=== PATIENT | male | born 1950 | race Caucasian/White ===

== ENCOUNTER → 2016-06-28 | Day surgery (SDC) | payer OTHER ==
[2016-06-17 12:03] VITALS: BMI 29.0
[~2016-06-28] VITALS: Ht 170.2 cm; Wt 84.1 kg
[~2016-06-28] MED LIST: ATOR-22 PO; DICL-201 PO; IBUP1TAB55 PO; LIDOCAINE HCL 2% 2 ML VIAL (20MG/ML) ONE; LISI-787 PO; MIDAZOLAM HCL 1 MG/ML 2ML VIAL ONE; MULT-506 PO; ONDANSETRON INJ 2 MG/ML 2 ML VIAL ONE; PROPOFOL IV EMULSION 10 MG/ML 20 ML VIAL IV ONE; SODIUM CHLORIDE 0.9% 500ML 500 ML IV ONE; VENL75CA PO
[2016-06-28 10:39] VITALS: Ht 170.2 cm; Wt 84.1 kg
--- NOTE | 2016-06-28 11:07 | Endo History and Physical ---
History & Physical Date of Service: Jun 28, 2016. Chief Complaint: Hx polyps Referring Physician: Dr. Aramis Dudley History of Present Illness 66 yo CM who presents for colonoscopy secondary to history of colon polyps. Past Surgical History Hx Cardiac Surgery: No Hx Internal Defibrillator: No Hx Pacemaker: No Hx Abdominal Surgery: Yes (INGUINAL HERNIA REPAIR) Hx of Implantable Prosthesis: No Hx Post-Op Nausea and Vomiting: No Hx Cancer Surgery: No Hx Thoracic Surgery: No Hx Orthopedic: No Hx Urinary Tract Surgery: No Family History None Social History Smoking Status: Former Smoker Hx Substance Use: No Hx Alcohol Use: Yes (2 DRINKS DAILY) Allergies Coded Allergies: Penicillins (Verified Allergy, Mild, MILD ALLERGY A CHILD, 06/17/16) Current Medications Reported Home Medications Medications Dose Route/Sig Max Daily Dose Days Date Category Dose Instructions Effexor Xr (Venlafaxine Hcl) 75 Mg Cap 1 Cap PO QPM 30 06/17/16 Reported Multivitamin (Multivitamins) Tab 1 Tab PO QAM 06/17/16 Reported Zestoretic 20MG/12.5MG (HCTZ/Lisinopril) Tab 1 Tab PO QAM 06/17/16 Reported Voltaren (Diclofenac Sodium) 75 Mg Tabcr 75 Mg PO BID 06/17/16 Reported WITH FOOD Vital Signs Weight (Kilograms): 84.09 Height (Feet): 5 Height (Inches): 7 Date Time Temp Pulse Resp B/P Pulse Ox O2 Delivery O2 Flow Rate FiO2 06/28/16 10:44 36.8 68 20 149/92 96 Room Air Physical Exam General Appearance: WD/WN, no apparent distress Respiratory/Chest: Auscultation: breath sounds normal Cardiovascular: Heart Auscultation: RRR Abdomen: Bowel Sounds: normal Inspection & Palpation: soft, non-distended, no tenderness, guarding & rebound Assessment and Plan Assessment: 66 yo CM who presents for colonoscopy secondary to history of colon polyps. Plan: Proceed with colonoscopy.
--- NOTE | 2016-06-28 11:50 | Discharge Instructions ---
Endoscopy Patient Instructions Date / Procedure(s) Performed Jun 28, 2016. Colonoscopy Allergy Information Coded Allergies: Penicillins (Verified Allergy, Mild, MILD ALLERGY A CHILD, 06/17/16) Discharge Date / Findings Jun 28, 2016. Colon polyp Diverticulosis Internal hemorrhoids Medication Instructions OK to resume all medications today as prescribed. Reported Home Medications Medications Dose Route/Sig Max Daily Dose Days Date Category Dose Instructions Effexor Xr (Venlafaxine Hcl) 75 Mg Cap 1 Cap PO QPM 30 06/17/16 Reported Multivitamin (Multivitamins) Tab 1 Tab PO QAM 06/17/16 Reported Zestoretic 20MG/12.5MG (HCTZ/Lisinopril) Tab 1 Tab PO QAM 06/17/16 Reported Voltaren (Diclofenac Sodium) 75 Mg Tabcr 75 Mg PO BID 06/17/16 Reported WITH FOOD Provider Instructions Activity Restrictions - No exercising or heavy lifting for 24 hours. - Do not drink alcohol the day of the procedure. - Do not drive a car or operate machinery until the day after the procedure. - Do not make any important decisions or sign important papers in 24 hours after the procedure. Following Day: - Return to full activity which may include returning to work/school. Diet Start your diet with liquids and light foods (jello, soup, juice, toast). Then eat your usual diet if not nauseated. Treatment For Common After Affects For mild abdominal pain, bloating, or excessive gas: - Rest - Eat lightly - Lie on right side Follow-Up Information Follow-up with Dr. Aramis Dudley as scheduled Anesthesia Information What You Should Know You have had a procedure that required some medicine to reduce anxiety and discomfort. This treatment is called moderate sedation. After receiving the treatment, you may be sleepy, but you will be able to breathe on your own. The effects of the treatment may last for several hours. Follow these instructions along with Activity/Diet recommendations noted above: * Do NOT do anything where dizziness or clumsiness would be dangerous. * Rest quietly at home today, then you can be up and about tomorrow. * Have a responsible person stay with you the rest of today. * You may have had an I.V. today. If so, you may take the dressing off later today. Recommendations Call your doctor if: * Trouble breathing * Continuous vomiting for more than 24 hours * Temperature above 101 degrees * Severe abdominal pain or bloating * Pain not relieved by pain medicine ordered * There is increased drainage or redness from any incision * A large amount of rectal bleeding greater than 2-3 tablespoons. (If you had a polyp/s removed or have hemorrhoids, a small amount of blood - from the rectum is to be expected.) * You have any unanswered questions or concerns. IN THE EVENT OF A SERIOUS EMERGENCY, GO TO THE NEAREST EMERGENCY ROOM Your discharge instructions were prepared by provider Arvind Amador. Patient Instructions Signature Page Jorge Jefferson Patient (or Guardian) Signature/Date: I have read and understand the instructions given to me by my caregivers. Caregiver/RN/Doctor Signature/Date: The above-named patient and/or guardian has received patient instructions on this date. + Original Patient Signature Page (only) stays with chart. Please make copy for patient.
--- NOTE | 2016-06-28 11:52 | GI REPORT ---
Procedure Date: 06/28/2016 11:22 AM Procedure: Colonoscopy Indications: High risk colon cancer surveillance: Personal history of colonic polyps Medicines: Monitored Anesthesia Care Complications: No immediate complications. Estimated Blood Loss: Estimated blood loss: none. Procedure: Pre-Anesthesia Assessment: - Prior to the procedure, a History and Physical was performed, and patient medications and allergies were reviewed. The patient's tolerance of previous anesthesia was also reviewed. The risks and benefits of the procedure and the sedation options and risks were discussed with the patient. All questions were answered, and informed consent was obtained. Prior Anticoagulants: The patient has taken no previous anticoagulant or antiplatelet agents. ASA Grade Assessment: II - A patient with mild systemic disease. After reviewing the risks and benefits, the patient was deemed in satisfactory condition to undergo the procedure. After I obtained informed consent, the scope was passed under direct vision. Throughout the procedure, the patient's blood pressure, pulse, and oxygen saturations were monitored continuously. The Scope was introduced through the anus and advanced to the terminal ileum. The colonoscopy was performed without difficulty. The patient tolerated the procedure well. The quality of the bowel preparation was good. The ileocecal valve, appendiceal orifice, and rectum were photographed. Findings: A 3 mm polyp was found in the cecum. The polyp was sessile. The polyp was removed with a cold biopsy forceps. Resection and retrieval were complete. A few small-mouthed diverticula were found in the sigmoid colon. Non-bleeding internal hemorrhoids were found during retroflexion. The hemorrhoids were small. Impression: - One 3 mm polyp in the cecum, removed with a cold biopsy forceps. Resected and retrieved. - Diverticulosis in the sigmoid colon. - Non-bleeding internal hemorrhoids. Recommendation: - Resume previous diet. - Continue present medications. - Repeat colonoscopy for surveillance based on pathology results. - Return to primary care physician as previously scheduled. Arvind Amador DO 06/28/2016 11:52:01 AM This report has been signed electronically. Note Initiated On: 06/28/2016 11:22 AM
[2016-06-28 12:20] VITALS: BP 135/77; PULSE 54; O2SAT 98
--- NOTE | 2016-06-28 15:05 | Anesthesiology Progress Note ---
Anesthesia Post Op Note Date & Time Jun 28, 2016 at 15:05 Vital Signs Pain Intensity: 0 Vital Signs Past 12 Hours Date Time Temp Pulse Resp B/P Pulse Ox O2 Delivery O2 Flow Rate FiO2 06/28/16 12:20 54 16 135/77 98 Room Air 06/28/16 12:05 56 16 138/84 98 Room Air 06/28/16 11:50 83 16 117/77 94 Room Air 06/28/16 10:44 36.8 68 20 149/92 96 Room Air Notes Mental Status: alert / awake / arousable, participated in evaluation Pt Amnestic to Procedure: Yes Nausea / Vomiting: adequately controlled Pain: adequately controlled Airway Patency, RR, SpO2: stable & adequate BP & HR: stable & adequate Hydration State: stable & adequate Anesthetic Complications: no major complications apparent
== END | disposition home or self-care (01) ==
LOC: C.GI 10:24
PROVIDERS: ATTEND Internal Medicine
DX: Z12.11 Encounter for screening for malignant neoplasm of colon (principal); D12.0 Benign neoplasm of cecum; Z86.010 Personal history of colon polyps; Z87.891 Personal history of nicotine dependence; K57.30 Diverticulosis of large intestine without perforation or abscess without bleeding; K64.8 Other hemorrhoids

== ENCOUNTER → 2016-12-27 | Outpatient (CLI) | payer OTHER ==
[~2016-12-27] MED LIST changes: -LIDOCAINE HCL 2% 2 ML VIAL (20MG/ML) ONE; -MIDAZOLAM HCL 1 MG/ML 2ML VIAL ONE; -ONDANSETRON INJ 2 MG/ML 2 ML VIAL ONE; -PROPOFOL IV EMULSION 10 MG/ML 20 ML VIAL IV ONE; -SODIUM CHLORIDE 0.9% 500ML 500 ML IV ONE
[2016-12-27 11:36] LABS: ALT/SGPT 43 U/L (12-78); AST/SGOT 32 U/L (15-37); BLOOD UREA NITROGEN 43 mg/dl (7-18); BUN/CREATININE RATIO 39.3 (10-20); CALCIUM 8.7 mg/dl (8.5-10.1); CARBON DIOXIDE 24 mmol/L (21-32); CHLORIDE 101 mmol/L (98-107); GLUCOSE 109 mg/dl (70-99); POTASSIUM 3.8 mmol/L (3.5-5.1); SODIUM 135 mmol/L (136-145)
[2016-12-27 11:41] LABS: ALB/GLOB RATIO 1.4 (0.9-2); ALKALINE PHOSPHATASE 82 U/L (45-117); CHOLESTEROL 241 mg/dl (0-200); CHOLESTEROL/HDL RATIO 5.4; HDL CHOLESTEROL 45 mg/dl; TRIGLYCERIDES 480 mg/dl (0-150)
--- NOTE | 2017-01-03 13:01 | CODING QUERY MEDICAL NECESSITY ---
SUPPORTING DIAGNOSIS NEEDED Dr. Dudley, A supporting diagnosis is required for the test/procedure performed on this patient in order for us to be reimbursed by the patient's insurance. Please provide a supporting diagnosis for the following test/procedure listed below next to the test name along with your signature. *If there is no additional diagnosis for this patient that would support the following test/procedure please document that below next to the test/procedure. Test(s)/Procedure(s) that require a supporting diagnosis: * [id number] PSA DIAGNOSIS: DATE OF SERVICE: 12/27/16 Provider Signature: Date: Thank you Kenny Malloy [facility] Information Management Once completed, please kindly fax back to [phone] For questions please call [phone]
== END | disposition home or self-care (01) ==
LOC: C.LABBC 07:51
PROVIDERS: ATTEND Internal Medicine Geriatric Medicine
DX: Z00.00 Encounter for general adult medical examination without abnormal findings (principal); I10 Essential (primary) hypertension; E78.5 Hyperlipidemia, unspecified; R73.9 Hyperglycemia, unspecified; Z12.5 Encounter for screening for malignant neoplasm of prostate

== ENCOUNTER → 2017-09-12 | Outpatient (CLI) | payer OTHER ==
[2017-09-12 14:56] LABS: ALT/SGPT 34 U/L (12-78); AST/SGOT 19 U/L (15-37); BLOOD UREA NITROGEN 30 mg/dl (7-18); CALCIUM 8.8 mg/dl (8.5-10.1); CARBON DIOXIDE 25 mmol/L (21-32); CREATININE 0.89 mg/dl (0.60-1.40); GLUCOSE 109 mg/dl (70-99); SODIUM 135 mmol/L (136-145); TOTAL PROTEIN 7.2 gm/dl (6.4-8.2)
[2017-09-12 15:09] LABS: ALKALINE PHOSPHATASE 71 U/L (45-117); CHOLESTEROL 247 mg/dl (0-200)
== END | disposition home or self-care (01) ==
LOC: C.LABBC 11:29
PROVIDERS: ATTEND Internal Medicine Geriatric Medicine
DX: I10 Essential (primary) hypertension (principal); E78.5 Hyperlipidemia, unspecified; M19.90 Unspecified osteoarthritis, unspecified site; F32.9 Major depressive disorder, single episode, unspecified; R73.9 Hyperglycemia, unspecified

== ENCOUNTER 2019-04-20 06:32 | Inpatient (IN) ==
[2019-03-27 13:17] LABS: Basophils # (auto) 0.02 K/uL (0-0.2); Basophils % (auto) 0.3 %; Eosinophils # (auto) 0.05 K/uL (0-0.5); Eosinophils % (auto) 0.8 %; Hematocrit (blood only) 40.9 % (42-52); Hemoglobin 14.3 g/dL (14.0-18.0); Immature Granulocytes # (auto) 0.02 K/uL (0.00-0.02); Immature Granulocytes % (auto) 0.3 %; Lymphocytes # (auto) 1.82 K/uL (1.2-3.4); Lymphocytes % (auto) 29.1 %; Mean Corpuscular Volume 91.5 fL (80-100); Mean Platelet Volume 10.8 fL (7.4-10.4); Monocytes # (auto) 0.68 K/uL (0.11-0.59); Monocytes % (auto) 10.9 %; Neutrophils # (auto) 3.66 K/uL (1.4-6.5); Neutrophils % (auto) 58.6 %; Platelet Count 238 K/uL (130-400); RDW Coefficient of Variation 13.7 % (11.5-14.5); RDW Standard Deviation 45.7 fL (36.4-46.3); Red Blood Count 4.47 M/uL (4.7-6.1); White Blood Count 6.25 K/uL (4.8-10.8)
[2019-03-27 13:29] LABS: Partial Thromboplastin Time 26.5 Seconds (21.0-31.0); Prothrombin Time 10.3 Seconds (9.0-12.0)
[2019-03-27 13:31] LABS: BUN Creatinine Ratio 38.3 (10-20); Blood Urea Nitrogen 30 mg/dl (7-18); C Reactive Protein < 0.29 mg/dl (0-0.29); Calcium 8.7 mg/dl (8.5-10.1); Carbon Dioxide 26 mmol/L (21-32); Chloride 102 mmol/L (98-107); Est GFR (African American) 106.9; Est GFR (Non-African American) 92.3; Glucose 119 mg/dl (70-99); Potassium 4.1 mmol/L (3.5-5.1); Sodium 133 mmol/L (136-145)
--- NOTE | 2019-04-02 13:14 | Anesthesiology Consultation ---
Date of Service April 02, 2019 Assessment & Plan (1) Encounter for pre-operative examination: Chart Review Chart Review: Acceptable Risk for Surgery and Patient NOT seen in Pre Admission Testing History Surgery Operation Date: 04/20/19 12:30 Proposed Procedures p Left Total Knee Replacement - Placido Damon MD Height/Weight Height: 5 ft 7 in Weight: 80.739 kg Allergies Allergy/AdvReac Type Severity Reaction Status Date / Time Penicillins Allergy Mild MILD Verified 02/22/19 07:22 ALLERGY A CHILD Medications Home Medications Medication Instructions Recorded Confirmed Last Taken atorvastatin 20 mg tablet 20 mg PO QPM 02/21/18 02/22/19 11/26/18 20:00 multivitamin tablet 1 tab PO QAM 02/21/18 02/22/19 11/27/18 08:00 lisinopril 10 mg tablet 10 mg PO BID tab 09/18/18 02/22/19 11/27/18 08:00 Samuel Long Lasting 2 spray INTRANASAL Q12H PRN 11/08/18 02/22/19 11/28/18 03:00 diclofenac sodium 75 mg 75 mg PO BID #180 tab 01/10/19 02/22/19 Unknown tablet,delayed release acetaminophen 1,000 mg PO QAM PRN 02/22/19 02/22/19 Unknown venlafaxine [Effexor XR] 75 mg PO QPM 02/22/19 02/22/19 Unknown Past Medical History Medical History Depressive disorder Osteoarthritis Hypertension Hyperlipidemia Past Family History Family History Grandfather Family history of diabetes mellitus Past Surgical History Surgical History History of herniorrhaphy left inguinal H/O eye surgery A CHILD History of colonoscopy X 3-4 History of total hip arthroplasty left Social History Smoking Status: Former smoker tobacco type: cigarettes Do You Dip or Chew Tobacco: No Smoking End Date: quit 30 years ago Hx Alcohol Use: Yes Alcohol type: hard liquor alcohol intake frequency: 0-2 drinks per day Hx Substance Use: No substance use type: does not use Testing Laboratory Results 03/27/19 10:41 03/27/19 10:41 PT 10.3 Seconds (9.0-12.0) 03/27/19 10:41 INR 1.0 (0.9-1.1) 03/27/19 10:41 APTT 26.5 Seconds (21.0-31.0) 03/27/19 10:41 Blood Type O Positive 03/27/19 10:42 Antibody Screen NEGATIVE 03/27/19 10:42 Electrocardiogram Date: 11/13/18 Findings: + SB @ (58) Chest X-Ray Date: 11/13/18 No prior studies are available for comparison at the time of dictation. The cardiomediastinal silhouette is unremarkable. The lungs and pleural spaces are clear. There is no pneumothorax. The bony thorax appears intact. Degenerative change is seen throughout the thoracic spine. No active disease in the chest.
--- NOTE | 2019-04-14 23:39 | History and Physical Report ---
DATE OF ADMISSION: 04/20/2019 CHIEF COMPLAINT: Bilateral knee pain and discomfort, left side greater than right. HISTORY OF PRESENT ILLNESS: The patient is a 69-year-old gentleman who presents for treatment of his knees. He has got a long history of bilateral knee pain and discomfort that has gradually just gotten worse over the years. He does have a history of left hip arthritis and had his left hip replaced about 4-1/2 months ago. He has done well from this side. He continues to be limited by his knee pain. The left side is a bit worse than the right. He has been through extensive conservative treatment which has not helped much lately. He would like to proceed with left knee replacement. PAST MEDICAL HISTORY: Significant for, 1. Spinal stenosis. 2. Hip DJD. 3. Bilateral knee DJD. PAST SURGICAL HISTORY: Include: 1. Herniorrhaphy. 2. Left hip replacement on 11/28/2018. ALLERGIES: PENICILLIN, REACTION IS UNKNOWN. CURRENT MEDICINES: Include: 1. Lisinopril. 2. Unspecified statin medicine for cholesterol. 3. Various anti-inflammatories. 4. Effexor. SOCIAL HISTORY: A 69-year-old male. 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 He is . Ten drinks per week. Does not smoke. FAMILY HISTORY: Noncontributory. REVIEW OF SYSTEMS: Negative for diabetes, neurologic problems, vascular problems, or bleeding disorders. No chest pain or shortness of breath. No history of DVT or PE. PHYSICAL EXAMINATION: GENERAL: Shows a pleasant, middle-aged male. He looks to be in good health. HEENT: Benign. NECK: Supple, no lymphadenopathy. LUNGS: Clear to auscultation. HEART: Regular rate and rhythm. ABDOMEN: Soft, nontender, nondistended. EXTREMITIES: Grossly neurovascularly intact except as follows: Examination of both knees reveals patient walks with a varus alignment to his knee. Examination of left knee reveals a varus alignment with a varus thrust with weightbearing. He has got bony hypertrophy medially. Range of motion about 5-120. No instability. No pain with hip motion. Examination of the left hip on this side reveals the hip incision to be healed nicely. He has got no pain with hip motion. He is neurologically intact. Examination of the right knee reveals varus alignment. He has bony hypertrophy medially. Small knee effusion. Range of motion 5-125. No instability. X-RAYS: X-ray of the left knee revealed advanced left knee DJD. He has got advanced medial compartment DJD. He has got complete loss of his medial joint space. He has subchondral sclerosis. He has got osteophytes off the medial as well as the posterior aspect of the femur. 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 He has failed conservative treatment and would like to have his left knee replaced. PLAN: We are going to take him to the operating room and do a left total knee replacement. The risks and benefits of this procedure were explained to the patient and include, but not limited to, DVT, PE, , infection, neurological injury, vascular injury, bleeding problem, pain, limited range of motion, stiffness, failure to relieve symptoms, incomplete relief of symptoms, need for further surgery in the future, fracture, leg length inequality, nerve palsy, etc. The patient understands and desires to proceed. Last time we tried to manage his pain with hip surgery with tramadol, but did not do too well. We will use Toradol postoperatively along with Tylenol and some oxycodone. As far as discharge plans, he is planning to be discharged to home using the [facility].
[~2019-04-20 06:32] MED LIST changes: +ACETAMINOPHEN 500 MG TAB PO SCH; -ATOR-22 PO; +BUPIVACAINE 0.5 % 5 MG/1 ML PF 10ML VIAL ONE; +BUPIVACAINE LIPOSOME/PF 266 MG, BUPIVACAINE/EPINEPHRINE 50 ML, SODIUM CHLORIDE 0.9% 30 ... INFIL SCH; +CEFAZOLIN 2000MG 2,000 MG/15 ML SYR IV SCH; -DICL-201 PO; +EPINEPHrine INJ 1 MG/ML AMP ONE; +FAMOTIDINE 20 MG TAB PO SCH; +GABAPENTIN 300 MG CAP PO SCH; -IBUP1TAB55 PO; -LISI-787 PO; +LR 500ML BOLUS, THEN 15ML/HR IV SCH; +LR 60ML/HR IV SCH; +METOCLOPRAMIDE HCL 10 MG TABLET PO SCH; -MULT-506 PO; +ROPIVACAINE 0.5% 5 MG/ML 30 ML VIAL ONE; +SCOPOLAMINE 1.5 MG TDSY TD SCH; +TRANEXAMIC ACID 1,000 MG **IV Intra-op IV SCH; -VENL75CA PO
--- NOTE | 2019-04-20 06:53 | History & Physical Bridge Note ---
Date of Service April 20, 2019 History & Physical Bridge Note I have examined the patient, reviewed the History & Physical and in the interval since the performance of the History & Physical I have noted the following changes of clinical significance: no changes noted
[2019-04-20] MEDS ORDERED: fentaNYL citrate 100 MCG/2 ML VIAL ONE (07:42)
[2019-04-20] MEDS ORDERED: MIDAZOLAM HCL 1 MG/ML 2ML VIAL ONE (07:42)
[2019-04-20] MEDS ORDERED: BACITRACIN INJ 50,000 UNIT VIAL ONE (08:32)
[2019-04-20] MEDS ORDERED: SODIUM CHLORIDE 0.9% PF 50 ML VIAL ONE (08:32)
[2019-04-20] MEDS ORDERED: BUPIVACAINE/EPINEPHRINE 0.25% 1:200,000 30 ML VIAL ONE (08:32)
[2019-04-20] MEDS ORDERED: BUPIVACAINE LIPOSOME 1.3% 266 MG/20 ML VIAL ONE (08:32)
[2019-04-20] MEDS ORDERED: ePHEDrine sulfate 50 MG/ML AMP IV PRN (08:50)
[2019-04-20] MEDS ORDERED: ATROPINE SULFATE 0.1 MG/ML 10ML SYR IV PRN (08:50)
[2019-04-20] MEDS ORDERED: PROPOFOL IV EMULSION 10 MG/ML 20 ML VIAL IV ONE (09:34)
--- NOTE | 2019-04-20 10:36 | Post Operative Brief Note ---
PG Immediate Post Op with CF Date of Surgery April 20, 2019 Pre & Post Diagnosis Operation Date: 04/20/19 08:50 Pre-Op Diagnosis: LEFT KNEE DEGENERATIVE JOINT DISEASE Post-Op Diagnosis: LEFT KNEE DEGENERATIVE JOINT DISEASE I identified the patient and participated in the time-out.: Yes Procedure Operation Date: 04/20/19 08:50 Actual Procedures p Left Total Knee Arthroplasty(Left) - Placido Damon MD Surgeon Placido Damon MD Director Product Management Sally, PAC Estimated Blood Loss 50 Findings Consistent with Post-Op Diagnosis Fluids 1500 cc Specimens Specimen Description: Permanent Solution: A.) Left Knee Bone and Tissue Drains Trujillo Catheter (16 bulgarian 10ml balloon patent,clean,dry,intact) Anesthesia Type Spinal MAC Complications none Disposition Accompanied Patient To Recovery: No Disposition: Recovery Room
--- NOTE | 2019-04-20 10:55 | Operative Report ---
Post Operative Report Pre & Post Diagnosis Operation Date: 04/20/19 08:50 Pre-Op Diagnosis: LEFT KNEE DEGENERATIVE JOINT DISEASE Post-Op Diagnosis: LEFT KNEE DEGENERATIVE JOINT DISEASE I identified the patient and participated in the time-out.: Yes Procedure Operation Date: 04/20/19 08:50 Actual Procedures p Left Total Knee Arthroplasty(Left) - Placido Damon MD Surgeon Placido Damon MD Graduate Student Instructor Sally, PAC Estimated Blood Loss 50 Findings Consistent with Post-Op Diagnosis Operative findings revealed advanced left knee DJD in the medial and patellofemoral compartments with grade 4 changes in both areas and extensive with eburnation of the medial femoral condyle, trochlea, medial tibial plateau. He had a fixed varus deformity to his knee. Osteophytes in the medial compartment. Moderate knee joint effusion. Fluids 1500 cc Specimens Left Knee sent for pathology. 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 He is been through extensive conservative treatment the past. This become less successful. He underwent a left hip replacement about 6 months ago is done extremely well from that. He elected proceed with a left total knee replacement. He has had advanced DJD in both knees which is failed conservative treatment over many years of treatment. Description of Procedure Operative implants consisted of: 1. Biomet Vanguard size 70 left posterior bifemoral component. 2. Biomet size 75 tibial tray. 3. Biomet 10 mm posterior stabilized polyethylene insert. 4. 31 x 8 all poly-patella. Patient was taken to the operating room identified and placed on the operating table supine position with all contact there is probably padded. IV en bloc from the right by the anesthesia team. A spinal anesthetic and abductor canal block had been provided in the holding area. A Trujillo catheter was placed in sterile fashion. A left eye turn was then placed in the left lower extremity was then prepped and draped in usual sterile fashion. Left leg was elevated and exsanguinated using an Esmarch interspace at 300 mmHg. An anterior approach to the left knee was then performed to a longitudinal incision centered over the patella. Sharp lysis got through subcutaneous tissue down below the extensor mechanism. A medial parapatellar arthrotomy incision was made. Some subperiosteal dissection was carried out medially. The fat pad was resected from beneath patella tendon. Lateral patellofemoral ligament was released. Patella was everted knee was flexed. The osteophytes taken of the distal femur. The ACL and PCL were then released from the distal femur and the tibia subluxated anteriorly. The external tibial alignment jig was then placed in the interface of the tibia and adjusted 16 mm medially. Proximal tibial cut was made to remove about a millimeter bone from the most efficient aspect of the posterior medial tibial plateau. Some osteophytes taken off medial and posterior medially. The tibia was sized to a size 75. Attention down the femur. New per the disc femur and the sharp drill bit intramedullary canal was suction. A left 6 degree valgus cutting guide was placed. The distal femoral cutting block was pinned in place. Distal femoral cut was made to take an additional 3 mm of bone off the distal femur. Femur was then sized to a size 70. We downsized this just slightly. The AP cutting block was pinned parallel to the epicondylar axis which was 6 degrees of external rotation. The anterior cut, anterior chamfer, posterior cut, posterior chamfer cuts were made. The box cutting guide was placed and just slightly lateral and the box cut was made. The knee was flexed. The remnants of the medial lateral menisci were excised. The osteophytes were taken off the posterior aspect of the femur. A trial femoral component was placed. The tibial tray was pinned in maximum external rotation and the drill and stem punch were used to create defect in the proximal tip for the tibial tray. The knee was then trialed the 10 mm insert fit most appropriately. Attention down the patella. The patella was cleaned of all soft tissues. The patella thickness measured 25 mm in thickness and was cut down to a 15. Was sized to a size 31 patella. Locals were drilled for 31 patella. Lateral osteophyte was removed. Patella button was placed. Knee was taken through range of motion patella tracked nicely with no thumbs test. Attention then drawn to place the permanent components. Nephrotic all trial components removed. A bone plug was placed in the disc femur limit blood loss. A double batch Palacos G cement was mixed. A Biomet Vanguard size 70 left posterior bifemoral component, size 75 tibial tray, 10 mm posterior bite polyethylene insert, and a 31 x 8 all poly-patella then cement in place. Knees brought down to full extension until cement hardened. Final cement check was then performed. The pericapsular tissues were injected with total of 100 cc of combination of 20 cc of Exparel, 30 cc normal saline, 50 cc of quarter percent Marcaine with epinephrine. Patient did receive 1 g of tranexamic acid. The tourniquet was then let down for final tourniquet time of 60 minutes. Hemostasis was assured with electrocautery. The wound was once again irrigated. Extensor macros then closed with combination 1 PDS suture #1 Vicryl suture in [id number] fashion. Extensor mechanism checked and found to be intact the subtenons tissue then closed with 2 Dexon suture in a buried fashion skin was closed skin danyel. Leg was then cleaned dried and sterile dressing was Xeroform for 4 sterile cast padding Bassam bandage were applied. Patient then transferred to the recovery room in stable condition. The patient tolerated the procedure well no complications. All needle sponge counts are correct at the end the operation. I attest to the content of the Intraoperative Record and any orders documented therein. Any exceptions are noted below.
--- NOTE | 2019-04-20 11:03 | XRay Report ---
XR knee LT 1 or 2V routine CLINICAL HISTORY: Postoperative evaluation. COMPARISON: Knee radiographs March 05, 2019. FINDINGS: Alignment of the total left knee arthroplasty is anatomic. Skin danyel are present. There is no fracture or unexpected radiopaque foreign body. IMPRESSION: Expected findings following total left knee arthroplasty. Electronically signed by: Toby Johnson M.D. 04/20/2019 11:02 AM
--- NOTE | 2019-04-20 11:28 | Anesthesiology Progress Note ---
Date of Service April 20, 2019 Anesthesia Post Procedure Vital Signs Vital Signs: Temp Pulse Pulse Resp BP BP Pulse Ox 04/20/19 11:15 54 L 14 100/63 94 04/20/19 11:05 59 L 14 101/64 95 04/20/19 10:55 69 16 107/62 98 04/20/19 10:45 69 16 102/63 98 04/20/19 10:39 36.4 C L 72 16 103/65 98 04/20/19 07:09 37.0 C 68 18 109/81 92 Transfer of Care Handoff Completed per policy Notes Mental Status: alert / awake / arousable Patient Amnestic to Procedure: Yes Nausea / Vomiting: adequately controlled Pain: adequately controlled Airway Patency, RR, SpO2: stable & adequate BP & HR: stable & adequate Hydration State: stable & adequate Neuraxial Anesthesia: was administered and sensory block is resolving Anesthetic Complications: no major complications apparent
[2019-04-20] MEDS ORDERED: NALOXONE HCL 0.4 MG/1 ML VIAL/CARP IV PRN (11:53)
[2019-04-20] MEDS ORDERED: BISACODYL 10 MG SUPP PR PRN (11:53)
[2019-04-20] MEDS ORDERED: ONDANSETRON INJ 2 MG/ML 2 ML VIAL IV PRN (11:53)
[2019-04-20] MEDS ORDERED: METOCLOPRAMIDE HCL INJ 5 MG/ML 2 ML VIAL IV PRN (11:53)
[2019-04-20] MEDS ORDERED: TAMSULOSIN HCL 0.4 MG CAP PO PRN (11:53)
[2019-04-20] MEDS ORDERED: MAGNESIUM HYDROXIDE SUSP 30 ML UDC PO PRN (11:53)
[2019-04-20] MEDS: SODIUM CHLORIDE 0.9% 1000ML 1,000 ML IV SCH ×2 (12:02→21:00)
[2019-04-20] MEDS ORDERED: OXYMETAZOLINE 0.05% 30 ML BTL NAE PRN (12:16)
[2019-04-20] MEDS: KETOROLAC TROMETHAMINE 15 MG/ML VIAL IV SCH ×3 (12:20→23:53)
[2019-04-20] MEDS: ACETAMINOPHEN 500 MG TAB PO SCH ×2 (14:19→21:55)
[2019-04-20] MEDS: OXYCODONE HCL IR 5 MG TAB (IMMEDIATE RELEASE) PO PRN (15:26)
[2019-04-20] MEDS: CHECK SCOPOLAMINE PATCH PLACEMENT SCH (15:28)
[2019-04-20] MEDS: CEFAZOLIN 2000MG 2,000 MG/15 ML SYR IV SCH ×2 (15:28→23:52)
[2019-04-20] MEDS ORDERED: TRANEXAMIC ACID 1,000 MG in 0.9 % SODIUM CHLORIDE 100 ML IV SCH (16:37)
[2019-04-20] MEDS: ASCORBIC ACID 500 MG TAB PO SCH (16:46)
[2019-04-20] MEDS: FERROUS GLUCONATE 324 MG TAB PO SCH (16:46)
--- NOTE | 2019-04-20 19:37 | Progress Note ---
DATE: 04/20/2019 SUBJECTIVE: A 69-year-old gentleman postop from a left knee replacement. He is doing well. Just starting to get some pain. No chest pain or shortness of breath. Not feeling dizzy or lightheaded. OBJECTIVE: VITAL SIGNS: Temperature 36.5. Vital signs are stable. GENERAL: Reveals a pleasant, middle-aged male. He is sitting up in bed, looks comfortable. LUNGS: Clear to auscultation. HEART: Regular rate and rhythm. ABDOMEN: Soft, nontender, nondistended. EXTREMITIES: Grossly neurovascularly intact except as follows: Examination of the left leg reveals the leg to be well aligned. Dressing is clean, dry, and intact. He can dorsiflex and plantarflex his foot appropriately. He has got brisk refill. Good distal pulse. X-RAYS: X-rays of the left knee from recovery room were reviewed. It shows cemented posterior stabilized total knee arthroplasty. Components looked to be in good position. No signs of problems. ASSESSMENT: A 69-year-old gentleman postoperative from a left knee replacement, doing well. Pain is controlled. He is neurologically intact. PLAN: 1. DVT prophylaxis including thigh-high TEDs, SCDs, and aspirin twice a day. 2. PT/OT. Weight bear as tolerated. Left total knee protocol. 3. Pain control, doing well with current pain regimen. 4. IV antibiotics x24 hours. 5. Disposition: He is planning to be discharged home with some home health once adequately recovered and medically stable.
[2019-04-20] MEDS: HYDROmorphone INJ 0.5 MG/0.5 ML SYR IV PRN (20:18)
[2019-04-20] MEDS: SENNA 8.6 MG TAB PO SCH (20:20)
[2019-04-20] MEDS: VENLAFAXINE HCL XR 75 MG CAPXR PO SCH (20:20)
[2019-04-20] MEDS: DOCUSATE SODIUM 100 MG CAP PO SCH (20:20)
[2019-04-20] MEDS: ATORVASTATIN 20 MG TAB PO SCH (20:20)
[2019-04-20] MEDS: ASPIRIN 81 MG ECTAB PO SCH (20:21)
[2019-04-20] MEDS: TAPENTADOL HCL ER 50 MG TABCR PO SCH (21:00)
[2019-04-21] MEDS: OXYCODONE HCL IR 5 MG TAB (IMMEDIATE RELEASE) PO PRN ×4 (00:01→23:41)
[2019-04-21] MEDS: CHECK SCOPOLAMINE PATCH PLACEMENT SCH (00:01)
[2019-04-21] MEDS: KETOROLAC TROMETHAMINE 15 MG/ML VIAL IV SCH ×4 (05:25→23:41)
[2019-04-21] MEDS: ACETAMINOPHEN 500 MG TAB PO SCH ×3 (05:25→21:14)
[2019-04-21 05:50] LABS: Hematocrit (blood only) 31.5 % (42-52); Hemoglobin 10.8 g/dL (14.0-18.0); Mean Corpuscular Hgb Conc 34.3 g/dL (32-36); Mean Corpuscular Volume 93.5 fL (80-100); Mean Platelet Volume 10.4 fL (7.4-10.4); Platelet Count 150 K/uL (130-400); RDW Coefficient of Variation 13.6 % (11.5-14.5); RDW Standard Deviation 46.2 fL (36.4-46.3); Red Blood Count 3.37 M/uL (4.7-6.1); White Blood Count 11.23 K/uL (4.8-10.8)
[2019-04-21 06:27] LABS: BUN Creatinine Ratio 35.1 (10-20); Creatinine Clr Calc Pharmacy 91.8 ml/min; Est GFR (African American) 106.9; Est GFR (Non-African American) 92.3; Potassium 3.9 mmol/L (3.5-5.1)
[2019-04-21] MEDS: MULTIVITAMIN TAB PO SCH (08:34)
[2019-04-21] MEDS: FERROUS GLUCONATE 324 MG TAB PO SCH ×2 (08:35→17:59)
[2019-04-21] MEDS: ASPIRIN 81 MG ECTAB PO SCH ×2 (08:35→21:13)
[2019-04-21] MEDS: ASCORBIC ACID 500 MG TAB PO SCH ×2 (08:35→17:59)
[2019-04-21] MEDS: LISINOPRIL/HCTZ 20/12.5MG 1 TAB TAB PO SCH (08:35)
[2019-04-21] MEDS: DOCUSATE SODIUM 100 MG CAP PO SCH ×2 (08:35→21:13)
[2019-04-21] MEDS: TAPENTADOL HCL ER 50 MG TABCR PO SCH ×2 (08:38→21:14)
[2019-04-21] MEDS ORDERED: MULTIVITAMIN TAB PO SCH (09:00)
--- NOTE | 2019-04-21 09:07 | Progress Note ---
DATE: 04/21/2019 SUBJECTIVE: A 69-year-old gentleman postop day #1 from left knee replacement. He is doing well. Pain is controlled. No chest pain or shortness of breath. Not feeling dizzy or lightheaded. OBJECTIVE: VITAL SIGNS: Temperature 36.5. Vital signs stable. GENERAL: Reveals a pleasant, middle-aged male. He is sitting up in bed, looks reasonably comfortable. EXTREMITIES: Examination of the left leg reveals the dressing to be clean, dry and intact. Leg is well aligned. He can dorsiflex and plantarflex his foot appropriately. He is neurologically intact. LABORATORY DATA: Hemoglobin is 10.8. Hematocrit 31.5. Electrolytes are stable. ASSESSMENT: A 69-year-old gentleman postop day #1 from left knee replacement, doing pretty well. Pain is controlled. He is neurologically intact. PLAN: 1. DVT prophylaxis including thigh-high TEDs, SCDs, and aspirin twice a day. 2. PT/OT. Weight bear as tolerated. Left total knee protocol. 3. Pain control, doing pretty well with current pain regimen. 4. Disposition: Plan to discharge to home. He is going to have [facility] home health/therapy.
[2019-04-21] MEDS: HYDROmorphone INJ 0.5 MG/0.5 ML SYR IV PRN (13:40)
[2019-04-21] MEDS: ATORVASTATIN 20 MG TAB PO SCH (21:13)
[2019-04-21] MEDS: VENLAFAXINE HCL XR 75 MG CAPXR PO SCH (21:13)
[2019-04-21] MEDS: SENNA 8.6 MG TAB PO SCH (21:14)
[2019-04-22] MEDS: ACETAMINOPHEN 500 MG TAB PO SCH (05:57)
[2019-04-22] MEDS: KETOROLAC TROMETHAMINE 15 MG/ML VIAL IV SCH (05:57)
[2019-04-22] MEDS: OXYCODONE HCL IR 5 MG TAB (IMMEDIATE RELEASE) PO PRN (06:47)
[2019-04-22] MEDS: FERROUS GLUCONATE 324 MG TAB PO SCH (07:27)
[2019-04-22] MEDS: LISINOPRIL/HCTZ 20/12.5MG 1 TAB TAB PO SCH (07:27)
[2019-04-22] MEDS: MULTIVITAMIN TAB PO SCH (07:27)
[2019-04-22] MEDS: DOCUSATE SODIUM 100 MG CAP PO SCH (07:27)
[2019-04-22] MEDS: ASPIRIN 81 MG ECTAB PO SCH (07:28)
[2019-04-22] MEDS: ASCORBIC ACID 500 MG TAB PO SCH (07:28)
[2019-04-22] MEDS: TAPENTADOL HCL ER 50 MG TABCR PO SCH (07:31)
--- NOTE | 2019-04-22 09:09 | Progress Note ---
DATE: 04/22/2019 SUBJECTIVE: A 69-year-old gentleman postop day 2 from a left knee replacement. He is doing pretty well. Pain has been controlled. Therapy is going well. No chest pain or shortness of breath. Not feeling dizzy or lightheaded. OBJECTIVE: VITAL SIGNS: Temperature 36.5. Vital signs stable. GENERAL: Shows a pleasant, middle-aged male. He was walking out of the bathroom with a walker quite well when I visited with him this morning. EXTREMITIES: Examination of the left leg reveals the leg to be well aligned. Dressing is clean, dry and intact. Calf is soft and supple. He is neurologically intact. ASSESSMENT: A 69-year-old gentleman postop day 2 from a left knee replacement, doing pretty well. Pain is controlled. PLAN: 1. DVT prophylaxis including thigh-high TEDs, SCDs and aspirin twice a day. 2. PT/OT. Weight bear as tolerated. Left total knee protocol. 3. Pain control, doing pretty well with current pain regimen. 4. Disposition. Plan to discharge to home with some home health later today.
--- NOTE | 2019-04-23 16:17 | Discharge Summary ---
ADMITTING PHYSICIAN AND SURGEON: Dr. Placido Damon. ADMITTING DIAGNOSIS: Left knee degenerative joint disease. SURGERY PERFORMED: Left total knee arthroplasty. SECONDARY DIAGNOSES: Spinal stenosis, hip degenerative joint disease, bilateral knee degenerative joint disease. CONSULTS: None obtained. HISTORY AND PHYSICAL EXAMINATION: Well documented in the patient's chart. HOSPITAL COURSE: The patient was admitted on 04/20/2019 underwent total knee arthroplasty, tolerated the procedure well. There were no complications. He was transferred to the PACU postoperatively and later to the orthopedic floor for further care. He was given Ancef for antibiotic prophylaxis, SANDY stockings, SCDs and aspirin for DVT prophylaxis. Hemoglobin, hematocrit and vital signs were monitored during his hospital stay and remained stable, did not require any blood transfusions. There were no complications. By postoperative day 2, he was tolerating a regular diet, pain was controlled with oral pain medicine. He was participating in physical therapy. On postop day 2, he was discharged home, set up with home health services, given printed discharge instructions as well as new prescriptions for extra strength Tylenol, aspirin and oxycodone. Continue his home medications, continue physical therapy, weightbearing as tolerated, SANDY stockings. Follow up approximately 2 weeks postop or sooner if there are any problems or concerns.
== END 2019-04-22 10:49 | disposition home health service (06) | DRG 470 ==
LOC: ASU 06:32 → 3E 10:40